=== PATIENT | male | born 1995 | race Caucasian/White ===

== ENCOUNTER 2018-01-03 06:40 | Inpatient (IN) | payer SELFPAY ==
[2018-01-03] MEDS ORDERED: Clindamycin/D5W 900 mg/50 ml Premix Bag ONE (07:54)
[2018-01-03] MEDS ORDERED: Dexamethasone 10 MG/ML VIAL ONE (07:54)
--- NOTE | 2018-01-03 08:11 | PDOC.FPRHP ---
- History of Present Illness Chief Complaint: sore throat History of Present Illness: 22 yo CM with no reported PMH p/w 3 day history of worsening sore throat and difficulty eating and drinking. Pt states no obvious inciting factors and denies and recent travel or sick contacts. Pt endorses subjective fevers/chills , nausea, throat pain, draining tonsillar swelling, trouble swallowing both solids and liquids. Pt denies any MARTI, ear pain, CP, SOB, abdominal pain, vomiting, diarrhea, or rash. ED Course: Patient seen by Dr. Ramos and had routine labs drawn that are pending at this time. ENT was called from ED and recommended observation with IV fluids and antibiotics. - Allergies/Adverse Reactions Allergies Allergy/AdvReac Type Severity Reaction Status Date / Time No Known Allergies Allergy Verified 02/13/15 00:40 - Home Medications Medication Instructions Recorded Confirmed Type No Known [No Known] 02/13/15 02/13/15 History - History PMHx: None per pt PSHx: None per pt FHx: Heart disease, both parents alive, healthy, and well. Social: 1/2 ppd smoker, denies EtOH and endorses marijuana but denies any other illicit drugs - Review of Systems General: reports: fever/chills, night sweats Eyes: denies: eye pain, vision changes ENT: reports: other (throat pain, swelling, trouble swallowing). denies: nasal congestion, rhinorrhea Respiratory: denies: cough, congestion, shortness of breath Cardiovascular: denies: chest pain, palpitation Gastrointestinal: reports: nausea. denies: vomiting, diarrhea, abdominal pain Genitourinary: denies: dysuria Skin: denies: rashes Musculoskeletal: denies: swelling, arthritis/arthralgias Psychological: denies: anxiety, depression - Vital signs BP: 126/87 HR: 106 RR: 16 Tmax: 98.3 Pox: 100% on RA Wt: 84kg - Physical Exam Constitutional: NAD, awake, alert and oriented HEENT: normocephalic and atraumatic, PERRLA, conjunctiva clear, no scleral icterus, grossly normal hearing, MMM, other (3+ tonsillar swelling with erythema and PND, equal BL, white patches exudates present bilaterally. no asymmetry. no trismus.) Neck: no thyromegaly, other (cervical LAD) Heart: RRR, normal S1/S2 Lungs: CTAB, no respiratory distress, good air movement Abdomen: soft, non-tender, bowel sounds present Musculoskeletal: normal tone, ROM grossly normal Neurological: no focal deficit Skin: no rash/lesions Heme/Lymphatic: no unusual bruising or bleeding Psychiatric: normal mood and affect FMR H&P: Results - Labs Result Diagrams: 01/03/18 07:43 01/03/18 07:43 FMR H&P: A/P - Problem List (1) Sepsis Current Visit: Yes Status: Acute Code(s): A41.9 - SEPSIS, UNSPECIFIED ORGANISM Qualifiers: Sepsis type: sepsis due to unspecified organism Qualified Code(s): A41.9 - Sepsis, unspecified organism (2) Pharyngitis Current Visit: Yes Status: Acute Code(s): J02.9 - ACUTE PHARYNGITIS, UNSPECIFIED Qualifiers: Pharyngitis/tonsillitis etiology: unspecified etiology Qualified Code(s): J02.9 - Acute pharyngitis, unspecified - Plan 1. Sepsis 2/2 acute pharyngitis -pt presented with throat pain, poor PO intake and fever/chills -tachycardic on presentation with WBC 33 and mildly elevated lactate 2.5 -pt has received 2L NS bolus -continue D5 1/2NS @ 125 as pt will be kept NPO -CT soft tissue neck pending to rule out peritonsilar abscess or pharyngeal cellulitis -if CT positive, will consult ENT -rapid strep swab negative -continue with clindamycin at this time and deescalate pending throat cultures Disposition/LOS: Admit to inpatient service for sepsis. Continue IVF and abx, await culture results. Continue to monitor closely. Attending Addendum - Attending Addendum Date/Time: 01/03/18 4350 I personally evaluated the patient and discussed the management with Dr. Muir. I agree with the History, Examination, Assessment and Plan documented above with any addition or exceptions noted below. Patient with no PMHx here for 4-5 days of increasing throat pain that began on right side, difficulty with swallowing both liquids and solids, and trismus. Reports subjective fevers, chills, and sweats during this period. Denies any sick contacts, and denies any nausea, vomiting, abdominal pain, constipation, diarrhea, skin rash, urinary changes. His physical exam is pertinent for tender anterior adenopathy, soft palate petichiae and tonil pillar edema and erythema. Exudative tonsils bilaterally and severe 3+ tonisllar enlargement bilaterally. No posterior pharyngeal bulging or uvular deviation noted. His labs are consistent for elevated WBC to 33, tachycardia low 100s, elevated lactate. CT scan read pending. Patient to be admitted for sepsis 2/2 pharyngitis with concern for possible associated pharyngeal cellulitis or peritonsilar abscess. Start on Clinda and fluids with 2L bolus. Trend lactate to ensure downtrending. Await CT read and consult ENT if necessary for possible I&D. Pain control with Tylenol and Toradol as needed.
[2018-01-03 08:17] LABS: ALT (SGPT) 20 U/L (8-55); AST (SGOT) 14 U/L (5-34); Albumin 4.6 g/dL (3.5-5.0); Alkaline Phosphatase 80 U/L (40-150); Anion Gap 17 mmol/L (10-20); BUN (Urea Nitrogen) 14 mg/dL (8.9-20.6); Bilirubin, Total 0.5 mg/dL (0.2-1.2); Calc. Creatinine Clearance 0 mL/min (70-130); Calcium 10.1 mg/dL (7.8-10.44); Carbon Dioxide 22 mmol/L (22-29); Chloride 99 mmol/L (98-107); Estimated GFR-MDRD Greater than 90; Globulin 3.4 g/dL (2.4-3.5); Glucose 98 mg/dL (70-105); Potassium 3.8 mmol/L (3.5-5.1); Sodium 134 mmol/L (136-145)
[2018-01-03 08:24] LABS: Mean Corpuscular HGB CONC 33.3 g/dL (32.0-36.0); Mean Corpuscular Volume 93.2 fl (80.0-94.0); Mean Platelet Volume 8.7 fL (7.4-10.4); Platelet Count 198 thou/uL (130-400); RBC Distribution Width 12.2 % (11.5-14.5); Red Blood Cell (RBC) Count 5.15 mill/uL (4.70-6.10); White Blood Cell (WBC) Count 33.5 thou/uL (4.8-10.8)
[2018-01-03 08:37] LABS: Band 5 % (5-11); Hypersemented Neutrophil SLIGHT; Lymphocytes 7 % (21-51); MDiff Complete? YES; Monocytes 6 % (0-10); Neutrophil 81 % (42-75); PLT Morphology Comment Appears Adequate; Reactive Lymphocytes 1 % (0-10); Vacuoles SLIGHT
[2018-01-03 09:03] LABS: Lactic Acid 2.5 mmol/L (0.5-2.2)
[2018-01-03] MEDS ORDERED: Ondansetron HCl/PF 4 MG/2 ML Vial IVP PRN ×2 (10:23→10:26)
[2018-01-03] MEDS ORDERED: Ondansetron ODT 4 MG TAB PO PRN (10:24)
[2018-01-03] MEDS ORDERED: Acetaminophen 325 MG TAB PO PRN (10:26)
[2018-01-03] MEDS ORDERED: Sodium Chloride 0.9% 1,000 ML IV SCH (10:30)
[2018-01-03] MEDS: Dextrose 5 %-0.45 % NaCl 1,000 ML IV SCH ×3 (11:18→23:53)
[2018-01-03 12:16] LABS: Amphetamine Not Detected (NotDetected); Barbiturates Screen Not Detected (NotDetected); Benzodiazepine Screen Not Detected (NotDetected); Cocaine Metabolite Screen Not Detected (NotDetected); Medtox Control Line Valid? VALID (VALID); Medtox Reader # READER 4; Methadone Not Detected (NotDetected); Methamphetamine Not Detected (NotDetected); Opiate Screen Not Detected (NotDetected); Oxycodone Screen Not Detected (NotDetected); Phencyclidine (PCP) Not Detected (NotDetected); THC/Cannabinoid Screen Detected (NotDetected); Tricyclic Screen Not Detected (NotDetected)
[2018-01-03 12:25] LABS: Lactic Acid 1.1 mmol/L (0.5-2.2)
[2018-01-03] MEDS: Ketorolac Tromethamine 30 MG/ML VIAL IVP PRN ×2 (12:55→23:58)
--- NOTE | 2018-01-03 14:38 | CT ---
POSTCONTRAST SOFT TISSUE NECK CT: History Sore throat x 3-4 days. The patient has not been able to eat or drink for the last 3-4 days. COMPARISON: None. TECHNIQUE: Postcontrast soft tissue neck CT is performed in the axial plane. Reformatted images are submitted f or interpretation. FINDINGS: Visualized brain parenchyma is unremarkable. Bilateral orbits are unremarkable. There is a complex mucous retention cyst in the right maxillary s inus with attenuation coefficient of 23 Hounsfield units. Adequate mastoid air cells aeration. The is minimal adenoid tonsillar fullness. No obvious masses in the anterior orbital cavity. There is edema and soft tissue prominence involving both palatine tonsils. There is associated narrowing o f the airway. A drainable peritonsillar abscess is not appreciated. Epiglottis has a normal caliber . Preepiglottic fat is preserved. Mild fullness of the left and right lingual tonsils. Larynx is u nremarkable. Parotid and submandibular glands have appropriate attenuation. Symmetric attenuation o f the sternocleidomastoid muscles. There are enlarged bilateral soft tissue neck lymph nodes and lar ge right level II lymph node measuring 1.6 x 1.8 cm. Enlarged level II lymph node measures 2.0 x 1.2 cm. Additional scattered soft tissue neck lymph nodes are noted. There may be a necrotic component to the aforementioned right level I lymph node. This necrotic component measures 0.8 cm. Grossly, the great vessels of the neck are patent. Cervical spine and vertebral body heights are maintained. No fracture. Central spinal canal and janae ral foramen are patent. Upper mediastinum and lung apices are unremarkable. IMPRESSION: 1. Soft tissue prominence of the left and right palatine tonsils suggesting tonsillitis. Drainable peritonsillar abscess is not appreciated at this time. 2. Reactive lymphadenopathy as detailed above. There is a component of necrosis involving a right l evel II lymph node. POS: [facility]
[2018-01-03] MEDS ORDERED: ISOVUE-370 76%-LOCM 1 ML ONE (16:01)
[2018-01-03] MEDS: Clindamycin/D5W 600 MG in Premix Bag 1 BAG IVPB SCH ×2 (16:22→23:53)
--- NOTE | 2018-01-04 07:34 | PDOC.FM ---
- Subjective Subjective: Pt seen at bedside in NAD. IVAN overnight. Pt notes he feels better and denies CP , SOB, abd pain, NVD. - Objective MAR Reviewed: Yes Vital Signs & Weight: Vital Signs (12 hours) Temp Pulse Resp BP Pulse Ox 01/04/18 06:27 97.7 F 82 18 111/70 98 01/04/18 00:00 97.9 F 77 18 107/56 L 97 01/03/18 20:05 97.8 F 92 18 97 01/03/18 20:00 97.8 F 92 18 120/56 L 97 I&O: 01/03/18 01/04/18 01/05/18 06:59 06:59 06:59 Intake Total 4025 Balance 4025 Result Diagrams: 01/04/18 05:03 01/03/18 07:43 <Dwayne Muir M - Last Filed: 01/04/18 10:44> - Objective Vital Signs & Weight: Vital Signs (12 hours) Temp Pulse Resp BP Pulse Ox 01/04/18 11:16 97.5 F L 80 18 122/72 98 01/04/18 08:00 97.8 F 89 18 108/66 95 01/04/18 06:27 97.7 F 82 18 111/70 98 01/04/18 00:00 97.9 F 77 18 107/56 L 97 Weight Admit Weight 69.581 kg Weight 69.581 kg I&O: 01/03/18 01/04/18 01/05/18 06:59 06:59 06:59 Intake Total 4025 Balance 4025 Result Diagrams: 01/04/18 05:03 01/03/18 07:43 <Nash Hunt - Last Filed: 01/04/18 11:29> Phys Exam - Physical Examination Constitutional: [facility] HEENT: PERRLA, 2+ tonsils pharyngeal erythema Neck: full ROM Respiratory: no wheezing, clear to auscultation bilateral Cardiovascular: RRR, no significant murmur Gastrointestinal: soft, non-tender, positive bowel sounds Musculoskeletal: pulses present Neurological: non-focal, moves all 4 limbs Psychiatric: normal affect, A&O x 3 Skin: cap refill <2 seconds <Dwayne Muir - Last Filed: 01/04/18 10:44> Dx/Plan (1) Sepsis Code(s): A41.9 - SEPSIS, UNSPECIFIED ORGANISM Status: Acute QualifierTitle: Sepsis type: sepsis due to unspecified organism Qualified Code(s): A41.9 - Sepsis, unspecified organism (2) Pharyngitis Code(s): J02.9 - ACUTE PHARYNGITIS, UNSPECIFIED Status: Acute QualifierTitle: Pharyngitis/tonsillitis etiology: unspecified etiology Qualified Code(s): J02.9 - Acute pharyngitis, unspecified - Plan Plan: 1. Sepsis 2/2 acute pharyngitis -pt presented with throat pain, poor PO intake and fever/chills -tachycardic on presentation with WBC 33 and mildly elevated lactate 2.5 -pt has received 2L NS bolus -pt initially on D5 1/2NS @ 125 as he was NPO but has tolerated PO diet well -CT soft tissue neck pending to rule out peritonsilar abscess or pharyngeal cellulitis -CT shows no abscess but partially necrotic LN, will touch base with ENT to see if requires inpatient evaluation -rapid strep swab negative -continue with clindamycin at this time and deescalate pending throat cultures -pt has greatly improved clinically and can likely be treated with oral abx as outpatient with close f/u with ENT Disposition: Pt stable and greatly improved. Pt tolerated PO diet well. Will transition pt to oral abx and pain control with motrin. ENT will f/u with pt in outpatient setting. Likely discharge this afternoon with close outpatient follow up. <Dwayne Muir - Last Filed: 01/04/18 10:44> (1) Sepsis Code(s): A41.9 - SEPSIS, UNSPECIFIED ORGANISM Status: Acute Qualifiers: Sepsis type: sepsis due to unspecified organism Qualified Code(s): A41.9 - Sepsis, unspecified organism (2) Pharyngitis Code(s): J02.9 - ACUTE PHARYNGITIS, UNSPECIFIED Status: Acute Qualifiers: Pharyngitis/tonsillitis etiology: unspecified etiology Qualified Code(s): J02.9 - Acute pharyngitis, unspecified <Nash Hunt - Last Filed: 01/04/18 11:29> Attending Addendum - Attending Addendum Date/Time: 01/04/18 1126 I personally evaluated the patient and discussed the management with Dr. Muir. I agree with the History, Examination, Assessment and Plan documented above with any addition or exceptions noted below. Patient doing much improved today. Denies pain, and tolerating normal diet. Feels well enough to go downstairs to smoke. No fevers, and cultures negative. Throat cx growing normal macrina. Labs improved with fluid hydration. CT scan did not show drainable fluid collection or evidence of more serious progressive infection. Patient to be discharged home on Clinda and will follow up with ENT as outpatient as discussed with Dr. Hauser. <Nash Hunt - Last Filed: 01/04/18 11:29>
[2018-01-04 07:53] LABS: Hemoglobin 14.1 g/dL (14.0-18.0); Mean Corpuscular HGB CONC 32.2 g/dL (32.0-36.0); Mean Corpuscular Hemoglobin 30.8 pg (27.0-31.0); Mean Corpuscular Volume 95.8 fl (80.0-94.0); Mean Platelet Volume 9.8 fL (7.4-10.4); Platelet Count 176 thou/uL (130-400); RBC Distribution Width 12.4 % (11.5-14.5); Red Blood Cell (RBC) Count 4.58 mill/uL (4.70-6.10); White Blood Cell (WBC) Count 33.2 thou/uL (4.8-10.8)
[2018-01-04 07:54] LABS: MDiff Complete? YES
[2018-01-04 07:55] LABS: Band 9 % (5-11); Monocytes 1 % (0-10); Neutrophil 83 % (42-75); RBC Morphology Normal; Reactive Lymphocytes 7 % (0-10)
[2018-01-04] MEDS: Clindamycin/D5W 600 MG in Premix Bag 1 BAG IVPB SCH (07:56)
[2018-01-04] MEDS: Dextrose 5 %-0.45 % NaCl 1,000 ML IV SCH (10:47)
[2018-01-04 11:17] VITALS: BP 122/72; TEMP 97.5
[2018-01-04 13:12] VITALS: BMI 25.0
[2018-01-04] MEDS ORDERED: Clindamycin/D5W 900 MG in Premix Bag 1 BAG IVPB SCH (14:00)
--- NOTE | 2018-01-05 13:54 | DIS-2 ---
DATE OF ADMISSION: 01/03/2018 DATE OF DISCHARGE: 01/04/2018 RESIDENT: Dr. Dwayne Muir. ADMITTING ATTENDING: Dr. Nash Hunt. DISCHARGE ATTENDING: Dr. Nash Hunt. CONSULTATIONS: ENT, Dr. Hebert Hauser. PROCEDURES: CT neck soft tissue performed on 01/03/2018 showed a soft tissue prominence of the left and right palatine tonsil suggesting tonsillitis with no drainable peritonsillar abscess, and reactive lymphadenopathy with a component of necrosis involving the right level 2 lymph node. PRIMARY DIAGNOSES: 1. Sepsis secondary to acute pharyngitis, resolving. 2. Tobacco abuse. DISCHARGE MEDICATIONS: Clindamycin 300 mg p.o. q.6 hours for 6 additional days. HISTORY OF PRESENT ILLNESS AND HOSPITAL COURSE: The patient is a 22-year-old male, who initially presented with a sore throat and was found to be septic due to acute pharyngitis. Due to the severity of his tonsillar swelling and initial concern for the possibility of peritonsillar abscess, the patient was admitted. After review of the above CT scan, ENT was consulted in order to evaluate if there was any requirement for inpatient intervention. ENT decided to follow up with the patient in the outpatient setting and agreed with oral antibiotics for treatment of his pharyngitis. The patient responded extremely well to fluid resuscitation and initial IV antibiotics eventually transitioned to oral antibiotics. He did have a significant leukocytosis that was downward trending; however, with his clinical picture improving, the patient was deemed stable for discharge. The patient's hospital course was otherwise uncomplicated. DISPOSITION: Stable. DISCHARGE INSTRUCTIONS: 1. Location: Home. 2. Diet as tolerated. 3. Activity: No restrictions. 4. Followup: The patient was instructed to follow up with ENT Dr. Hebert Hauser within 2 weeks. The patient was also instructed to establish with a PCP and follow up regularly for routine healthcare. [facility]ITALCaroline
== END 2018-01-04 18:01 | disposition home or self-care (01) | DRG 872 ==
LOC: ERS 06:40 → T4-B 07:50
PROVIDERS: ADMIT Family Medicine; ATTEND Family Medicine
DX: A41.9 Sepsis, unspecified organism (principal); F17.210 Nicotine dependence, cigarettes, uncomplicated; J02.9 Acute pharyngitis, unspecified
CPT/HCPCS: 36415; 70491; 80053; 80306; 83605; 85025; 87040; 87070; 87081; 87430; 96361; 96365; 96375; 99406; A4216; J1100; J1885; J3490

== ENCOUNTER 2018-05-13 05:23 | Emergency (ER) | payer SELFPAY ==
[2018-05-13 06:04] LABS: #Basophils 0.1 thou/uL (0.0-0.2); #Eosinphils 0.1 thou/uL (0.0-0.7); #Lymphocytes 2.8 thou/uL (1.20-3.40); #Neutrophils 8.8 thou/uL (1.40-6.50); %Basophils 0.4 % (0.0-1.0); %Eosinophils 0.8 % (0.0-10.0); %Lymphocytes 22.1 % (21.0-51.0); %Monocytes 7.6 % (0.0-10.0); Hemoglobin 17.9 g/dL (14.0-18.0); Mean Corpuscular HGB CONC 34.3 g/dL (32.0-36.0); Mean Corpuscular Hemoglobin 30.6 pg (27.0-31.0); Mean Corpuscular Volume 89.3 fL (78.0-98.0); Mean Platelet Volume 8.7 fL (7.4-10.4); Platelet Count 230 thou/uL (130-400); RBC Distribution Width 12.2 % (11.5-14.5); Red Blood Cell (RBC) Count 5.85 mill/uL (4.70-6.10); White Blood Cell (WBC) Count 12.8 thou/uL (4.8-10.8)
[2018-05-13 06:17] LABS: ALT (SGPT) 38 U/L (8-55); AST (SGOT) 29 U/L (5-34); Albumin 4.9 g/dL (3.5-5.0); Alkaline Phosphatase 79 U/L (40-150); Anion Gap 15 mmol/L (10-20); BUN (Urea Nitrogen) 28 mg/dL (8.9-20.6); Bilirubin, Total 1.5 mg/dL (0.2-1.2); CK (CPK) 558 U/L (30-200); Calc. Creatinine Clearance 0 mL/min (70-130); Calcium 10.5 mg/dL (7.8-10.44); Carbon Dioxide 24 mmol/L (22-29); Chloride 96 mmol/L (98-107); Estimated GFR-MDRD 88; Globulin 3.6 g/dL (2.4-3.5); Glucose 112 mg/dL (70-105); Potassium 3.9 mmol/L (3.5-5.1); Protein, Total 8.5 g/dL (6.0-8.3); Sodium 131 mmol/L (136-145)
== END 2018-05-13 07:00 | disposition home or self-care (01) ==
LOC: ERS 05:23
DX: R25.2 Cramp and spasm (principal); F17.210 Nicotine dependence, cigarettes, uncomplicated; R11.10 Vomiting, unspecified; R10.9 Unspecified abdominal pain
CPT/HCPCS: 80053; 82550; 85025; 96360